=== PATIENT | male | born 1960 | race Caucasian/White ===

== ENCOUNTER 2019-10-31 12:40 | Emergency (ER) | payer BC ==
[~2019-10-31] VITALS: Ht 172.7 cm; Wt 81.6 kg
[2019-10-31 12:57] VITALS: BP_SYST 113
--- NOTE | 2019-10-31 12:57 | NUR ---
Patient to ER bed 1 to gown for evaluation. Side rails up.
--- NOTE | 2019-10-31 12:57 | NUR ---
PT BROUGHT TO ER AFTER FALLING 5FT FROM LADDER AND HITTING HEAD. HE THEN WAS UNABLE TO SPEAK APPROPRIATELY. 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
--- NOTE | 2019-10-31 13:08 | NUR ---
ER at bedside examining patient.
[2019-10-31] MEDS ORDERED: ONDANSETRON HCL 4 MG/2 ML VIAL IVP ONE (13:45)
[2019-10-31] MEDS ORDERED: MORPHINE 2 MG/ML INJ. SYRINGE IVP ONE (13:45)
[2019-10-31] MEDS ORDERED: NACL 0.9% 1,000 ML IV ONE (13:45)
--- NOTE | 2019-10-31 14:40 | NUR ---
Returned from radiology, back to [facility].
--- NOTE | 2019-10-31 14:50 | NUR ---
TOLERATED MEDICATION, WILL CONTINUE TO MONITOR PT.
--- NOTE | 2019-10-31 15:14 | NUR ---
X-ray tech at bedside as ordered by Dr. Cross. Patient tolerated the procedure well. Addendum: 10/31/19 at 1514 by [email or web address] X-ray tech at bedside as ordered by Dr. Jimenez. Patient tolerated the procedure well.
[2019-10-31 15:37] LABS: BASOPHILS % (AUTO) 0.1 % (0.0-2.0); HEMATOCRIT 44.2 % (36-54); HEMOGLOBIN 14.6 g/dL (14.0-18.0); LYMPHOCYTES % (AUTO) 9.8 % (20.5-51.5); MEAN CORPUSCULAR HEMOGLOBIN 31 pg (27-31); MEAN CORPUSCULAR HGB CONC 33 % (32-36); MEAN CORPUSCULAR VOLUME 94 fL (79.0-98.0); MONOCYTES % (AUTO) 4.8 % (1.7-9.3); NEUTROPHILS % (AUTO) 85.3 % (40.0-70.0); PLATELET COUNT (AUTO) 186 K/uL (130-430); RED BLOOD CELL COUNT(AUTO) 4.72 MIL/uL (4.2-6.2)
[2019-10-31 15:49] LABS: INR 1.1 (0.80-1.20); PROTHROMBIN TIME 10.7 SECS (9.5-12.5)
[2019-10-31 15:51] LABS: ANION GAP 8 (5-15); CALCIUM 8.8 mg/dL (8.4-11.0); CHLORIDE 103 mmol/L (98-107); CREATININE 1.07 mg/dL (0.55-1.30); GLUCOSE 141 mg/dL (70-99); POTASSIUM 4.1 mmol/L (3.5-5.1); SODIUM SERUM 137 mmol/L (136-145); UREA NITROGEN, BLOOD 21 mg/dL (8-21)
[2019-10-31 15:59] LABS: ALANINE AMINOTRANSFERASE 40 U/L (12-78); ALBUMIN 3.9 g/dL (3.4-4.8); ASPARTATE AMINOTRANSFERASE 28 U/L (10-37); TOTAL BILIRUBIN 0.8 mg/dL (0.0-1.0)
[2019-10-31] MEDS ORDERED: LIDOCAINE 1% 10 MG/ML, 20 ML MDV INJ ONE (16:00)
--- NOTE | 2019-10-31 16:00 | NUR ---
PT RESTING IN [facility], VSS HEAD BANDAGED
[2019-10-31 16:12] LABS: GFR AFRICAN AMERICAN 90 mL/min (>90)
[2019-10-31] MEDS ORDERED: BACITRACIN 1 GM OINT TP ONE (16:30)
[2019-10-31 18:10] VITALS: BP_SYST 103
--- NOTE | 2019-10-31 18:10 | NUR ---
Patient given written and verbal discharge instructions and verbalizes understanding. ER MD discussed with patient the results and treatment provided. Patient in stable condition. ID arm band removed. IV catheter removed intact and dressing applied, no active bleeding. Rx of NORCO given. Patient educated on pain management and to follow up with PMD. Pain Scale 0/10. Opportunity for questions provided and answered. Medication side effect fact sheet provided.
== END 2019-10-31 18:10 | disposition home or self-care (01) ==
LOC: SED 12:40
DX: S06.0X0A Concussion without loss of consciousness, initial encounter (principal); D72.829 Elevated white blood cell count, unspecified; R91.1 Solitary pulmonary nodule; I25.2 Old myocardial infarction; W11.XXXA Fall on and from ladder, initial encounter; Y93.89 Activity, other specified; Y92.098 Other place in other non-institutional residence as the place of occurrence of the external cause; Y99.8 Other external cause status
CPT/HCPCS: 36415; 70450; 71250; 73030; 73060; 73090; 73130; 80053; 84484; 85025; 85610; 96374; 96375; 99284; J2001; J2270; J2405; J7030